=== PATIENT | female | born 1960 | race Hispanic/Latino ===

== ENCOUNTER 2019-02-24 17:52 | Inpatient (IN) | payer SELFPAY ==
[~2019-02-24] VITALS: Ht 152.4 cm; Wt 63.5 kg
[2019-02-24] MEDS ORDERED: CEFTRIAXONE SODIUM 2 GM VIAL ONE (18:27)
[2019-02-24] MEDS ORDERED: SODIUM CHLORIDE 0.9% 50 ML IV ONE (18:28)
[2019-02-24] MEDS ORDERED: VANCOMYCIN 1GM+NS 250ML 250 ML IV ONE (18:28)
[2019-02-24 18:32] LABS: BASOPHILS % (AUTO) 0.5 % (0.0-5.0); EOSINOPHILS % (AUTO) 0.8 % (0.0-8.0); HEMATOCRIT 37.5 % (36-48); LYMPHOCYTES % (AUTO) 39.3 % (21.0-51.0); MEAN CORPUSCULAR HEMOGLOBIN 32.5 pg (27.0-33.0); MEAN CORPUSCULAR HGB CONC 34.4 g/dL (32.0-36.0); MEAN CORPUSCULAR VOLUME 94.5 fL (79-99); MONOCYTES % (AUTO) 6.5 % (3.0-13.0); NEUTROPHILS % (AUTO) 52.1 % (40.0-77.0); PLATELET COUNT (AUTO) 333 K/uL (130-400); RED BLOOD CELL COUNT(AUTO) 3.97 MIL/uL (4.00-5.50); RED CELL DISTRIBUTION WIDTH 11.7 % (11.0-15.5); WHITE BLOOD COUNT (AUTO) 6.5 K/uL (4.8-10.8)
[2019-02-24 18:50] LABS: CREATININE 0.7 mg/dL (0.5-1.5); POTASSIUM 3.4 mmol/L (3.5-5.1)
[2019-02-24 18:55] LABS: ALBUMIN 3.2 g/dL (3.5-5.0); BILIRUBIN,TOTAL 0.1 mg/dL (0.2-1.0); TOTAL PROTEIN, SERUM 7.4 g/dL (6.0-8.3)
[2019-02-24] MEDS ORDERED: SODIUM CHLORIDE 0.9% 1000ML 1,000 ML IV ONE ×2 (19:18→19:31)
[2019-02-24 19:26] LABS: APPEARANCE,URINE Clear (CLEAR); BILIRUBIN,URINE Negative (NEGATIVE); COLOR,URINE Yellow (YELLOW); GLUCOSE, URINE (UA) >=1000 mg/dL (NEGATIVE); KETONES,URINE Trace mg/dL (NEGATIVE); LEUKOCYTE ESTERASE ,URINE Negative (NEGATIVE); NITRATE,URINE Positive (NEGATIVE); OCCULT BLOOD,URINE Negative (NEGATIVE); PROTEIN,URINE Negative (NEGATIVE); UROBILINOGEN,URINE 0.2 mg/dL (0.2-1.0)
[2019-02-24 19:35] LABS: INR 0.87 (0.85-1.15); PARTIAL THROMBOPLASTIN TIME 22.6 SEC (26.3-35.5); PROTHROMBIN TIME 9.2 SEC (9.6-11.6)
[2019-02-24 19:50] LABS: CREATINE KINASE, TOTAL 22 U/L (21-232); MYOGLOBIN 9 ng/mL (10-92); TROPONIN I < 0.04 ng/mL (0.00-0.06)
[2019-02-24 19:56] LABS: BACTERIA,URINE Few /HPF (None Seen); RBC,URINE 0-1 /HPF (0-1)
[2019-02-24 19:57] LABS: YEAST,URINE BUDDING Few /HPF (None Seen)
[2019-02-24 19:58] LABS: SQUAMOUS EPITHELIAL CELL,UR Rare /HPF (0-2)
[2019-02-24] MEDS ORDERED: POTASSIUM CHLORIDE 20 MEQ ERTAB PO SCH (20:00)
[2019-02-24 20:43] LABS: HEMOGLOBIN A1C 12.1 % (4.0-6.0)
[2019-02-24] MEDS ORDERED: GLUCAGON 1MG KIT 1 MG ML IM PRN (20:45)
[2019-02-24] MEDS ORDERED: DEXTROSE 50%-WATER 50 ML DISP.SYRIN IV PRN (20:45)
[2019-02-24] MEDS: SODIUM CHLORIDE 0.9% 1000ML 1,000 ML IV SCH ×2 (20:46→23:16)
[2019-02-24] MEDS ORDERED: ONDANSETRON HCL 4 MG/2 ML VIAL IV PRN (21:00)
[2019-02-24] MEDS ORDERED: HYDROCODONE/ACETAMINOPHEN 5/325 MG TAB PO PRN (21:00)
[2019-02-24] MEDS ORDERED: ACETAMINOPHEN 325 MG TAB PO PRN ×2 (21:00)
[2019-02-24] MEDS: INSULIN HUMULIN R 100 UNIT/ML 3ML SQ SCH (21:00)
[2019-02-24] MEDS ORDERED: POTASSIUM CHLORIDE 20 MEQ ERTAB PO ONE (21:06)
[2019-02-24] MEDS ORDERED: INSULIN HUMULIN R 100 UNIT/ML 3ML ONE (21:07)
[2019-02-24] MEDS ORDERED: MAGNESIUM 2GM PREMIX 50ML 50 ML IV ONE (21:07)
[2019-02-24] MEDS ORDERED: POTASSIUM CHLORIDE 20MEQ/100ML 100 ML IV PRN (21:15)
[2019-02-24] MEDS ORDERED: HYDRALAZINE HCL 20 MG/ML VIAL IV PRN (21:15)
[2019-02-24] MEDS ORDERED: LIDOCAINE HCL-MPF 1% 2ML VIAL IJ PRN (21:15)
[2019-02-24] MEDS ORDERED: POTASSIUM CHLORIDE 10% ELIXIR 20 MEQ/15 ML UDCUP PO PRN (21:15)
[2019-02-24] MEDS ORDERED: VANCOMYCIN PROTOCOL PER PHARMACY IV SCH (21:45)
[2019-02-24 22:25] VITALS: BP 148/79
[2019-02-24] MEDS ORDERED: LOSA50TA64 PO (22:58)
--- NOTE | 2019-02-24 23:00 | NUR ---
ADMIT PT ADMITTED TO ROOM 320, AAOX3. NO DISTRESS NOTED. ADMISSION ASSESSMENT DONE, PLEASE REFER TO CHART. ADMISSION CARE DONE. ADMISSION DATA BASE COMPLETED. STARTED PT ON IVF OF NS REGULATED AT 100CC/HR. INSTRUCTED TO BE NPO POST MN FOR SX IN AM. PT VERBALIZES UNDERSTANDING. ORIENTED TO ROOM AND UNIT. CALL LIGHT WITHIN REACH. IN FOR MORE CARE AND MANAGEMENT. Addendum: 02/25/19 at 0157 by TIFFANIE OSPINA RN RN Amended: Links added.
[2019-02-24] MEDS: FAMOTIDINE 20MG TAB 20 MG TAB PO SCH (23:16)
--- NOTE | 2019-02-25 02:00 | NUR ---
ROUNDS PT RESTING WELL, NO DISTRESS NOTED. KEPT RESTED AND COMFORTABLE. CALL LIGHT WITHIN REACH. WILL MONITOR PT. FAMILY ASLEEP AT BEDSIDE.
[2019-02-25 04:00] VITALS: BP 136/66
[2019-02-25] MEDS: INSULIN HUMULIN R 100 UNIT/ML 3ML SQ SCH ×4 (05:55→22:02)
[2019-02-25] MEDS: SODIUM CHLORIDE 0.9% 1000ML 1,000 ML IV SCH (05:55)
--- NOTE | 2019-02-25 06:00 | NUR ---
CONSENT PT VERBALIZES UNDERSTANDING OF SX TO BE GIVEN. PT SIGNED CONSENT FOR SX, WITNESSED BY PT'S DAUGHTER AND REWRITE EDITOR. KEPT NPO. FOR MORE CARE.
[2019-02-25 06:16] LABS: HEMATOCRIT 34.8 % (36-48); MEAN CORPUSCULAR HEMOGLOBIN 32.3 pg (27.0-33.0); MEAN CORPUSCULAR HGB CONC 33.6 g/dL (32.0-36.0); MEAN CORPUSCULAR VOLUME 96.1 fL (79-99); PLATELET COUNT (AUTO) 310 K/uL (130-400); RED BLOOD CELL COUNT(AUTO) 3.62 MIL/uL (4.00-5.50); RED CELL DISTRIBUTION WIDTH 11.9 % (11.0-15.5); WHITE BLOOD COUNT (AUTO) 5.9 K/uL (4.8-10.8)
[2019-02-25] MEDS ORDERED: GLIPIZIDE/METFORMIN PO (06:37)
[2019-02-25 06:38] LABS: ALBUMIN 2.7 g/dL (3.5-5.0); BILIRUBIN,TOTAL 0.2 mg/dL (0.2-1.0); CREATININE 0.5 mg/dL (0.5-1.5); MAGNESIUM 1.6 mg/dL (1.80-2.40); POTASSIUM 3.9 mmol/L (3.5-5.1); TOTAL PROTEIN, SERUM 6.2 g/dL (6.0-8.3)
--- NOTE | 2019-02-25 08:00 | NUR ---
REPORT REPORT GIVEN TO LOKI VACA NURSE. FOR MORE CARE AND MANAGEMENT.
[2019-02-25 08:07] VITALS: BP 138/74
[2019-02-25 08:11] LABS: EOSINOPHILS % (MANUAL) 1 % (1-6); LYMPHOCYTES % (MANUAL) 42 % (22-44); MONOCYTES % (MANUAL) 8 % (2-9); REACTIVE LYMPHOCYTES 1 % (0-0); SEGMENTED NEUTROPHILS % 48 % (40-70)
[2019-02-25 08:14] LABS: MAN.DIFF COMMENT-IMPRESSION MANUAL DIFFERENTIAL; PLATELET MORPHOLOGY COMMENT ADEQUATE
[2019-02-25] MEDS: VANCOMYCIN 1GM+NS 250ML 250 ML IV SCH ×2 (09:23→21:52)
[2019-02-25] MEDS: LOSARTAN 50 MG TABLET PO SCH (09:23)
[2019-02-25] MEDS: FAMOTIDINE 20MG TAB 20 MG TAB PO SCH ×2 (09:23→21:52)
[2019-02-25 11:12] VITALS: BP 148/75
--- NOTE | 2019-02-25 12:32 | NUR ---
Diet education: Provided printed materials on diabetic diet education. Pt encouraged to monitor CHO intake to better control BS. Portion sizes and nutrition label reading tips reviewed as well. Pt and family with multiple nutritional questions, all questions answered by SONY. Please consult SONY as nutrition concerns arise. Addendum: 02/25/19 at [address] RD Amended: Links added.
--- NOTE | 2019-02-25 12:37 | NUR ---
Nutrition intervention: Nutrition consult for diabetic teaching. Education provided. Pt with no nutritional concerns at the moment with N/V/D, chewing or swallowing difficulties. Recommendations: Continue current diet therapy. Consult RD as nutrition concerns arise. Addendum: 02/25/19 at [address] RD Amended: Links added.
[2019-02-25 16:35] VITALS: BP 146/71
[2019-02-25] MEDS: CEFTRIAXONE SODIUM 2 GM VIAL IVP SCH (16:42)
--- NOTE | 2019-02-25 16:55 | NUR ---
DC PLAN MEET WITH PATIENT, SPOUSE AND DAUGHTERS IN ROOM. PER PATIENT, IS INDEPENDENT WITH ADLS, LIVES WITH SPOUSE, NO PROVIDER OR COMMUNITY RESOURCES IN USE, DENIES USE OF DME, AND FEELS SAFE TO RETURN HOME ONCE DISCHARGED. Addendum: 02/25/19 at 1656 by TRACIE LEWIS RN Amended: Links added.
--- NOTE | 2019-02-25 17:19 | NUR ---
Spoke with patient's mother Osmany regarding request for consent of PICC or midline to continue with IV fluids and electrolytes to balance patient electrolyte levels to normal per physician order, treatment plan. Per mother, she wants to hold off on providing consent at the moment until she speaks with PCP when gets into town tomorrow, 02/26/19 to discuss the care she received here at [facility] [place] and to determine if treatment plan was valid. Educated mother on importance of IV access, and how current peripheral IV infiltrated, unable to administer fluids to maintain normal electrolyte levels. MOther Osmany stated she understood but would wait until after recommendation from PCP tomorrow and would let us know. Informed Dr. Emily Granda of conversation with mother.
[2019-02-25 20:00] VITALS: BP 147/79
[2019-02-25] MEDS: MAGNESIUM 2GM PREMIX 50ML 50 ML IV PRN (21:51)
--- NOTE | 2019-02-25 21:52 | NUR ---
MEDS SHIFT ASSESSMENT DONE, PLEASE REFER TO CHART. DUE MEDS ADMINISTERED, TOLERATED WELL. MAGNESIUM REPLACEMENT STARTED. PM SNACKS PROVIDED. KEPT RESTED AND COMFORTABLE. CALL LIGHT WITHIN REACH. INSTRUCTED TO BE NPO POST MN, VERBALIZES UNDERSTANDING. WILL CONTINUE TO MONITOR. Addendum: 02/26/19 at 0358 by TIFFANIE OSPINA RN RN Amended: Links added.
[2019-02-26] VITALS (19 sets, daily range): BP systolic 132–169; BP diastolic 68–88
--- NOTE | 2019-02-26 02:10 | NUR ---
PIV PT CLAIMS OF TENDERNESS TO PIV SITE. NO NOTED SWELLING NOR REDNESS. SL PIV. RE-INSERTED SECOND PIV TO LFA G20. PT TOLERATED INSERTION WELL. CONTINUED IV INFUSION. KEPT NPO. ENCOURAGED TO GO BACK TO SLEEP. WILL MONITOR PT. CALL LIGHT WITHIN REACH. FAMILY ASLEEP AT BEDSIDE. Addendum: 02/26/19 at 0401 by TIFFANIE OSPINA RN RN Amended: Links added.
[2019-02-26] MEDS: SODIUM CHLORIDE 0.9% 1000ML 1,000 ML IV SCH ×4 (02:34→22:33)
[2019-02-26] MEDS: INSULIN HUMULIN R 100 UNIT/ML 3ML SQ SCH ×4 (06:08→20:30)
[2019-02-26] MEDS: MAGNESIUM 2GM PREMIX 50ML 50 ML IV PRN (06:38)
--- NOTE | 2019-02-26 06:38 | NUR ---
MEDS PT RESTING WELL IN BED, NO CONCERNS VERBALIZED. PT'S MG=1.8, IV REPLACEMENT INFUSION STARTED. KEPT NPO FOR SX. FOR MORE CARE.
[2019-02-26] MEDS: VANCOMYCIN 1GM+NS 250ML 250 ML IV SCH ×2 (09:19→20:30)
[2019-02-26] MEDS ORDERED: MIDAZOLAM HCL 1 MG/ML 2ML VIAL ONE (14:49)
[2019-02-26] MEDS ORDERED: KETAMINE 50MG/ML SYRINGE 50 MG/ML DISP.SYRIN IV ONE (14:49)
[2019-02-26] MEDS ORDERED: FENTANYL CITRATE PF 50 MCG/1 ML 2ML VIAL ONE (14:50)
[2019-02-26] MEDS ORDERED: GLYCOPYRROLATE 1 MG/5 ML SYRINGE ONE (14:53)
[2019-02-26] MEDS ORDERED: LIDOCAINE HCL 1% 20 ML VIAL ONE (15:04)
[2019-02-26] MEDS ORDERED: MORPHINE SULFATE 4 MG/1ML SYG ONE (15:31)
[2019-02-26] MEDS ORDERED: KETOROLAC TROMETHAMINE 30MG/ML ONE (15:31)
--- NOTE | 2019-02-26 16:01 | NUR ---
Patient returned from I&D. No dressing in place, minimal dry drainage to Rt middle finger with sutures. Patient denies pain. BP 150/68. Scheduled Losartan potassium to be administered with pepcid.
[2019-02-26] MEDS: CEFTRIAXONE SODIUM 2 GM VIAL IVP SCH (17:20)
[2019-02-26] MEDS: FAMOTIDINE 20MG TAB 20 MG TAB PO SCH ×2 (17:21→20:06)
[2019-02-26] MEDS: LOSARTAN 50 MG TABLET PO SCH (17:22)
[2019-02-26] MEDS: HYDROCODONE/ACETAMINOPHEN 5/325 MG TAB PO PRN (20:06)
--- NOTE | 2019-02-26 20:06 | NUR ---
MEDS SHIFT ASSESSMENT DONE, PLEASE REFER TO CHART. PT COMPLAINTS OF PAINS TO SX SITE ON RT MIDDLE FINGER. MEDICATED WITH NORCO 2 TABS PO. DUE MEDS ADMINISTERED WELL. KEPT RESTED IN BED. WILL RE-ASSESS PT. Addendum: 02/27/19 at 0529 by TIFFANIE OSPINA RN RN Amended: Links added.
[2019-02-26] MEDS ORDERED: COMPOUND IV REFRIGERATED 1 EACH IVSOLN MISC PRN (20:30)
--- NOTE | 2019-02-27 01:30 | NUR ---
ROUNDS PT RESTING WELL, FAIRLY ASLEEP. NO DISTRESS NOTED. KEPT UNDISTURBED FOR NOW. WILL CONTINUE TO MONITOR. FAMILY ASLEEP AT BEDSIDE.
[2019-02-27] MEDS: HYDROCODONE/ACETAMINOPHEN 5/325 MG TAB PO PRN ×3 (02:55→20:08)
--- NOTE | 2019-02-27 02:55 | NUR ---
PAIN PT CALLS AND COMPLAINTS OF PAINS AGAIN ON POST OP FINGER. MEDICATED WITH NORCO PO. KEPT RESTED AND COMFORTABLE. CALL LIGHT WITHIN REACH. WILL RE-ASSESS PT. Addendum: 02/27/19 at 0531 by TIFFANIE OSPINA RN RN Amended: Links added.
[2019-02-27 04:00] VITALS: BP 141/76
[2019-02-27] MEDS: VANCOMYCIN 750MG + NS 250 ML IV SCH ×6 (04:00→20:08)
[2019-02-27 05:48] LABS: HEMATOCRIT 32.8 % (36-48); MEAN CORPUSCULAR HEMOGLOBIN 32.6 pg (27.0-33.0); MEAN CORPUSCULAR HGB CONC 33.8 g/dL (32.0-36.0); MEAN CORPUSCULAR VOLUME 96.5 fL (79-99); PLATELET COUNT (AUTO) 275 K/uL (130-400); WHITE BLOOD COUNT (AUTO) 5.8 K/uL (4.8-10.8)
[2019-02-27] MEDS: INSULIN HUMULIN R 100 UNIT/ML 3ML SQ SCH ×3 (05:54→16:30)
[2019-02-27 05:57] LABS: CREATININE 0.4 mg/dL (0.5-1.5); MAGNESIUM 1.5 mg/dL (1.80-2.40); POTASSIUM 3.6 mmol/L (3.5-5.1)
[2019-02-27] MEDS: MAGNESIUM 2GM PREMIX 50ML 50 ML IV PRN (06:05)
[2019-02-27] MEDS: POTASSIUM CHLORIDE 20 MEQ ERTAB PO PRN ×2 (06:05→18:58)
[2019-02-27 07:00] VITALS: BP 149/81
--- NOTE | 2019-02-27 07:50 | NUR ---
REPORT REPORT GIVEN TO AM SHIFT, SAUL. NURSES'S ROUNDS DONE. PT VERBALIZES PAIN HAD SUBSIDED. DAUGHTER ATTENDING TO PT WITH HER BREAKFAST AT THIS TIME.
[2019-02-27 08:27] LABS: EOSINOPHILS % (MANUAL) 1 % (1-6); LYMPHOCYTES % (MANUAL) 54 % (22-44); MAN.DIFF COMMENT-IMPRESSION MANUAL DIFFERENTIAL; MONOCYTES % (MANUAL) 3 % (2-9); SEGMENTED NEUTROPHILS % 42 % (40-70)
[2019-02-27 08:28] LABS: PLATELET MORPHOLOGY COMMENT ADEQUATE
[2019-02-27] MEDS: LOSARTAN 50 MG TABLET PO SCH (10:44)
[2019-02-27] MEDS: SODIUM CHLORIDE 0.9% 1000ML 1,000 ML IV SCH ×2 (10:44→18:49)
[2019-02-27] MEDS: FAMOTIDINE 20MG TAB 20 MG TAB PO SCH ×2 (10:44→20:08)
[2019-02-27 11:00] VITALS: BP 158/80
[2019-02-27 16:00] VITALS: BP 153/99
[2019-02-27] MEDS: CEFTRIAXONE SODIUM 2 GM VIAL IVP SCH (16:00)
[2019-02-27 20:00] VITALS: BP 150/72
[2019-02-27 23:38] VITALS: BP 153/71
[2019-02-28] MEDS: INSULIN HUMULIN R 100 UNIT/ML 3ML SQ SCH ×4 (00:14→18:27)
[2019-02-28 04:06] VITALS: BP 127/64
[2019-02-28] MEDS: SODIUM CHLORIDE 0.9% 1000ML 1,000 ML IV SCH (04:46)
[2019-02-28 05:55] LABS: BASOPHILS % (AUTO) 0.1 % (0.0-5.0); HEMATOCRIT 35.6 % (36-48); LYMPHOCYTES % (AUTO) 28.7 % (21.0-51.0); MEAN CORPUSCULAR HEMOGLOBIN 31.9 pg (27.0-33.0); MEAN CORPUSCULAR HGB CONC 32.9 g/dL (32.0-36.0); MONOCYTES % (AUTO) 5.1 % (3.0-13.0); NEUTROPHILS % (AUTO) 64.8 % (40.0-77.0); PLATELET COUNT (AUTO) 285 K/uL (130-400); RED BLOOD CELL COUNT(AUTO) 3.67 MIL/uL (4.00-5.50)
[2019-02-28 06:11] LABS: CARBON DIOXIDE 28 mmol/L (21-32); CHLORIDE 109 mmol/L (101-111); CREATININE 1.5 mg/dL (0.5-1.5); GLOMERULAR FILTR. RATE CALC 38 mL/min (>60); GLUCOSE,RANDOM 85 mg/dL (70-105); POTASSIUM 3.4 mmol/L (3.5-5.1); SODIUM SERUM 145 mmol/L (136-145); UREA NITROGEN, BLOOD 7 mg/dL (7-18)
[2019-02-28] MEDS: VANCOMYCIN 750MG + NS 250 ML IV SCH ×2 (06:40)
[2019-02-28] MEDS: POTASSIUM CHLORIDE 20 MEQ ERTAB PO PRN ×3 (06:51→18:32)
[2019-02-28 08:00] VITALS: BP 150/79
[2019-02-28] MEDS: FAMOTIDINE 20MG TAB 20 MG TAB PO SCH (08:34)
[2019-02-28] MEDS: HYDROCODONE/ACETAMINOPHEN 5/325 MG TAB PO PRN (08:34)
[2019-02-28] MEDS: LOSARTAN 50 MG TABLET PO SCH (08:34)
[2019-02-28 11:00] VITALS: BP 137/79
[2019-02-28] MEDS ORDERED: AMOX500C2 PO (14:31)
[2019-02-28] MEDS ORDERED: DOXY100T21 PO (14:31)
[2019-02-28 16:00] VITALS: BP 144/77
[2019-02-28] MEDS: CEFTRIAXONE SODIUM 2 GM VIAL IVP SCH (18:28)
== END 2019-02-28 18:55 | disposition home or self-care (01) | DRG 603 ==
LOC: EDH 17:52 → EDHIP 17:53 → 3CH 22:13
PROVIDERS: ADMIT Internal Medicine; ATTEND Internal Medicine
PROC: 0X9J0ZZ Drainage of Right Hand, Open Approach (ICD-10-PCS; principal; 2019-02-26 15:06)
DX: L02.511 Cutaneous abscess of right hand (principal); E87.2 Acidosis; N30.00 Acute cystitis without hematuria; L03.011 Cellulitis of right finger; E87.6 Hypokalemia; E11.65 Type 2 diabetes mellitus with hyperglycemia; K21.9 Gastro-esophageal reflux disease without esophagitis; M19.90 Unspecified osteoarthritis, unspecified site; I10 Essential (primary) hypertension; E83.42 Hypomagnesemia; Z91.19 Patient's noncompliance with other medical treatment and regimen; Z79.84 Long term (current) use of oral hypoglycemic drugs; Z82.49 Family history of ischemic heart disease and other diseases of the circulatory system
CPT/HCPCS: 36415; 71045; 73140; 80048; 80053; 80202; 81001; 82550; 82948; 83036; 83605; 83735; 83874; 84145; 84484; 85025; 85610; 85730; 87040; 87077; 87088; 87186; 87641; 93005; A4606; G0378; J0696; J1815; J1885; J2250; J2270; J2405; J3010; J3370; J3475; J3490; J7030

== ENCOUNTER 2024-01-02 14:53 | Emergency (ER) | payer BC ==
[~2024-01-02] VITALS: Ht 152.4 cm; Wt 67.6 kg
[~2024-01-02 14:53] MED LIST: AMOX500C2 PO; DOXY100T21 PO; GLIPIZIDE/METFORMIN PO; LOSA50TA64 PO
[2024-01-02 17:27] LABS: BASOPHILS # (AUTO) 0.01 K/uL (0.00-0.20); BASOPHILS % (AUTO) 0.1 % (0.0-5.0); EOSINOPHILS % (AUTO) 1.3 % (0.0-8.0); IMMATURE GRANULOCYTE ABSOLUTE 0.01 K/uL (0-1); LYMPHOCYTES # (AUTO) 2.1 K/uL (1.0-4.8); LYMPHOCYTES % (AUTO) 27.1 % (21.0-51.0); MEAN CORPUSCULAR HEMOGLOBIN 32.4 pg (27.0-33.0); MEAN CORPUSCULAR HGB CONC 32.8 g/dL (32.0-36.0); MEAN CORPUSCULAR VOLUME 98.9 fL (79-99); MONOCYTES # (AUTO) 0.6 K/uL (0.1-1.0); MONOCYTES % (AUTO) 8.5 % (3.0-13.0); NEUTROPHILS # (AUTO) 4.8 K/uL (1.8-7.7); NEUTROPHILS % (AUTO) 62.9 % (40.0-77.0); PLATELET COUNT (AUTO) 298 K/uL (130-400); RED BLOOD CELL COUNT(AUTO) 3.64 MIL/uL (4.00-5.50); RED CELL DISTRIBUTION WIDTH 13.4 % (11.0-15.5); WHITE BLOOD COUNT (AUTO) 7.6 K/uL (4.8-10.8)
[2024-01-02 17:39] LABS: CREATININE 0.8 mg/dL (0.5-1.0); POTASSIUM 4.2 mmol/L (3.5-5.1)
[2024-01-02] MEDS ORDERED: SULF1TAB42 PO (18:45)
[2024-01-02] MEDS: 0.9%NACL 1000ML 1,000 ML IV ONE (19:14)
[2024-01-02] MEDS: cefTRIAXone 1G VIAL IVPB ONE (19:15)
[2024-01-02 19:54] VITALS: BP 143/67; PULSE 87; RESP 16; TEMP 98.3; O2SAT 100
== END 2024-01-02 20:02 | disposition home or self-care (01) ==
LOC: EDH 14:53
DX: L97.919 Non-pressure chronic ulcer of unspecified part of right lower leg with unspecified severity (principal); R22.41 Localized swelling, mass and lump, right lower limb; E11.9 Type 2 diabetes mellitus without complications; I10 Essential (primary) hypertension; Z79.899 Other long term (current) drug therapy; Z79.84 Long term (current) use of oral hypoglycemic drugs; Z98.890 Other specified postprocedural states
CPT/HCPCS: 99284; 96374; 93971; 80048; 85025; 83605; 36415; 73610; 84145; J7030; J0696